=== PATIENT | male | born 1950 ===

== ENCOUNTER 2018-02-21 11:05 | Inpatient (IN) | payer OTHER ==
[~2018-02-21] VITALS: Ht 180.3 cm; Wt 79.4 kg
[2018-02-21] MEDS ORDERED: LOSARTAN POTASS50 MG PO (12:08)
[2018-02-21] MEDS ORDERED: METFORMIN HCL850 MG PO (12:08)
[2018-02-21] MEDS ORDERED: SIMVASTATIN10 MG PO (12:09)
[2018-02-21] MEDS ORDERED: VENTOLIN HFA18 GM IH (12:10)
[2018-02-21] MEDS ORDERED: SINGULAIR 10MG10 MG PO (12:10)
[2018-02-21] MEDS ORDERED: FLOVENT DISKU100 MCG IH (12:11)
[2018-02-21] MEDS ORDERED: RANITIDINE HCL150 M1 PO (12:12)
[2018-02-21] MEDS ORDERED: OMEPRAZOLE20 M1 PO (12:13)
== END 2018-03-03 12:51 | disposition home or self-care (01) | DRG 331 ==
LOC: O/R 02-25 05:25 → SURH 02-25 05:25
PROVIDERS: Colon & Rectal Surgery
PROC: 0D1B4Z4 Bypass Ileum to Cutaneous, Percutaneous Endoscopic Approach (ICD-10-PCS; 2018-02-25)
PROC: 07TC4ZZ Resection of Pelvis Lymphatic, Percutaneous Endoscopic Approach (ICD-10-PCS; 2018-02-25)
PROC: 0DTF4ZZ Resection of Right Large Intestine, Percutaneous Endoscopic Approach (ICD-10-PCS; 2018-02-25)
PROC: 0WQF4ZZ Repair Abdominal Wall, Percutaneous Endoscopic Approach (ICD-10-PCS; 2018-02-25)
PROC: 0DJD8ZZ Inspection of Lower Intestinal Tract, Via Natural or Artificial Opening Endoscopic (ICD-10-PCS; 2018-02-25)
PROC: 4A1BXSH Monitoring of Gastrointestinal Vascular Perfusion using Indocyanine Green Dye, External Approach (ICD-10-PCS; 2018-02-25)
PROC: 4A033R1 Measurement of Arterial Saturation, Peripheral, Percutaneous Approach (ICD-10-PCS; 2018-02-25)
PROC: 0DTP4ZZ Resection of Rectum, Percutaneous Endoscopic Approach (ICD-10-PCS; principal; 2018-02-25 07:00)
DX: C19 Malignant neoplasm of rectosigmoid junction (principal); D12.0 Benign neoplasm of cecum; R59.0 Localized enlarged lymph nodes; K43.9 Ventral hernia without obstruction or gangrene; I10 Essential (primary) hypertension; E78.00 Pure hypercholesterolemia, unspecified; J45.909 Unspecified asthma, uncomplicated; J44.9 Chronic obstructive pulmonary disease, unspecified; G89.18 Other acute postprocedural pain

== ENCOUNTER 2018-02-23 05:39 | Day surgery (SDC) | payer OTHER ==
[~2018-02-23 05:39] MED LIST: FLOVENT DISKU100 MCG IH; LOSARTAN POTASS50 MG PO; METFORMIN HCL850 MG PO; OMEPRAZOLE20 M1 PO; RANITIDINE HCL150 M1 PO; SIMVASTATIN10 MG PO; SINGULAIR 10MG10 MG PO; VENTOLIN HFA18 GM IH
== END 2018-02-23 09:40 | disposition home or self-care (01) ==
LOC: AMB-ENDOS 05:39
DX: C20 Malignant neoplasm of rectum (principal)

== ENCOUNTER 2018-09-12 14:37 | Inpatient (IN) | payer OTHER ==
[~2018-09-12] VITALS: Ht 180.3 cm; Wt 71.7 kg
== END 2018-09-20 20:51 | disposition home or self-care (01) | DRG 330 ==
LOC: SURH 09-16 05:23 → O/R 09-16 05:23 → SURH 09-16 08:30
PROVIDERS: Colon & Rectal Surgery
PROC: 3E0F7GC Introduction of Other Therapeutic Substance into Respiratory Tract, Via Natural or Artificial Opening (ICD-10-PCS; 2018-09-16)
PROC: 0DQB4ZZ Repair Ileum, Percutaneous Endoscopic Approach (ICD-10-PCS; principal; 2018-09-16 08:30)
PROC: 30233N1 Transfusion of Nonautologous Red Blood Cells into Peripheral Vein, Percutaneous Approach (ICD-10-PCS; 2018-09-18)
DX: C20 Malignant neoplasm of rectum (principal); N17.8 Other acute kidney failure; D62 Acute posthemorrhagic anemia; Z43.2 Encounter for attention to ileostomy; I10 Essential (primary) hypertension; E78.00 Pure hypercholesterolemia, unspecified; J44.9 Chronic obstructive pulmonary disease, unspecified; Z86.010 Personal history of colon polyps; J45.998 Other asthma

== ENCOUNTER → 2018-09-14 | Day surgery (SDC) | payer OTHER | END | disposition home or self-care (01) | LOC: ADM 09-12 11:15 → AMB-ENDOS 06:43 | DX: C20 Malignant neoplasm of rectum (principal) ==